=== PATIENT | female | born 1995 | race American Indian/Alaskan Native ===

== ENCOUNTER 2016-12-10 17:23 | Emergency (ER) | payer SELFPAY ==
--- NOTE | 2016-12-10 18:54 | XRay Report ---
FINAL REPORT EXAM: XR ANKLE 2V LT HISTORY: Injury, pain, swelling COMPARISON: None available. FINDINGS: Three views of left ankle obtained. Oblique nondisplaced fracture of the distal fibular metaphysis and diaphysis. 1 millimeter avulsive fracture fragment the inferior margin the medial malleolus. Prominent soft tissue swelling along the lateral malleolus. Ankle mortise is preserved. IMPRESSION: Oblique nondisplaced fracture of the distal fibula. 1 millimeter fracture fragment at the inferior margin of the medial malleolus.
--- NOTE | 2016-12-10 20:03 | Emergency Department Report ---
HPI - General Chief Complaint: Extremity Injury, Lower Time Seen by Provider: 12/10/16 19:56 - HPI HPI: 21-year-old -[place] female comes in for left ankle pain. Patient states that she slipped and injured her left ankle she states she heard a cracking noise the injury happened last night. She does report that she iced it and take ibuprofen and elevated it last night. She has no past medical history she currently is on no medication and she has a Mirena placed. Last menstrual period was 11/27/2016. ED Past Medical Hx - Past Medical History Previous Medical History?: Yes Additional medical history: - Surgical History Past Surgical History?: No - Social History Smoking Status: Current Every Day Smoker Substance Use Type: None - Medications Home Medications: Home Medications Medication Instructions Recorded Confirmed Last Taken Type Famotidine [Pepcid] 20 mg PO BID #60 tablet 03/12/16 Unknown Rx Vit No.130/Iron/FA 1 tab PO DAILY 03/12/16 03/12/16 07/18/16 History [ Tablet] Oxycodone HCl/Acetaminophen 1 each PO Q6HR PRN #12 tablet 12/10/16 Unknown Rx [Percocet 7.5/325 mg] ED Review of Systems ROS: Stated complaint: LEFT ANKLE SWOLLEN Other details as noted in HPI Musculoskeletal: joint swelling, arthralgia Physical Exam - Physical Exam Vital Signs: Vital Signs 12/10/16 17:51 Temperature 99.1 F Pulse Rate 100 H Respiratory 20 Rate Blood Pressure 143/76 O2 Sat by Pulse 100 Oximetry Physical Exam: GENERAL: Alert and oriented x3, no apparent distress, Normal Gait, atraumatic. HEAD: Head is normocephalic and a-traumatic. EYES: Extra ocular muscles are intact. Pupils are equal, round, and reactive to light and accommodation. EXTREMITIES/MUSCULOSKELETAL: No cyanosis, clubbing, rash, lesions or edema. Full ROM bilaterally. UE/LE Pulses 2+ bilaterally. LE and UE 5+ strength bilaterally left leg edema to the lateral and posterior malleolus. Tender to palpate, decreased range of motion secondary to pain. Capillary refill is intact less than 2 seconds. NEUROLOGIC: No focal Deficit, Cranial nerves II through XII are grossly intact. No loss of sensation, No facial droop, PSYCHIATRIC: Mood is congruent with affect, denies suicidal or homicidal ideations. SKIN: Warm and dry, No lesions, No ulceration or induration present ED Course Vital Signs 12/10/16 17:51 Temperature 99.1 F Pulse Rate 100 H Respiratory 20 Rate Blood Pressure 143/76 O2 Sat by Pulse 100 Oximetry ED Medical Decision Making - Medical Decision Making Patient seen and evaluated by this provider fast track. Given patient a Percocet 2 tablets by mouth now. She has fractured her fibula as a oblique nondisplaced fracture of the distal tubular is a 1 mm fracture fragment at the inferior margin of the medial malleolus. The patient a posterior splint and refer her to orthopedics and would give her pain management. Patient verbalized understanding Critical care attestation.: If time is entered above; I have spent that time in minutes in the direct care of this critically ill patient, excluding procedure time. ED Disposition Clinical Impression: Fracture, fibula, proximal, Fracture of malleolus of left ankle Disposition: DISCHARGED TO HOME OR SELFCARE Is pt being admited?: No Does the pt Need Aspirin: No Condition: Stable Instructions: Ankle Fracture (ED) Additional Instructions: Please take pain medication as prescribed. Do not operate heavy machinery while on this medication. Is very important for you to follow up with orthopedic for proper treatment of the ureter ankle. Prescriptions: Oxycodone HCl/Acetaminophen [Percocet 7.5/325 mg] 1 each PO Q6HR PRN #12 tablet PRN Reason: Pain Referrals: LARRY DAVIS MD [Staff Physician] - 3-5 Days [facility] [Provider Group] - 3-5 Days [facility] [Provider Group] - 3-5 Days [facility], [Provider Group] - 3-5 Days [facility] [Provider Group] - 3-5 Days Forms: Work/School Release Form(ED)
[2016-12-10] MEDS ORDERED: PERCOCET 5/325 PO ONE (20:04)
[2016-12-10 20:53] VITALS: BP 139/77
== END 2016-12-10 21:09 | disposition home or self-care (01) ==
LOC: ED 17:23
DX: S82.832A Other fracture of upper and lower end of left fibula, initial encounter for closed fracture (principal); S82.892A Other fracture of left lower leg, initial encounter for closed fracture; F17.200 Nicotine dependence, unspecified, uncomplicated; W01.0XXA Fall on same level from slipping, tripping and stumbling without subsequent striking against object, initial encounter; Y93.9 Activity, unspecified; Y92.89 Other specified places as the place of occurrence of the external cause; Y99.9 Unspecified external cause status
CPT/HCPCS: 81025; 99284

== ENCOUNTER 2017-04-30 17:33 | Emergency (ER) | payer BC ==
--- NOTE | 2017-04-30 18:00 | Emergency Department Report ---
Chief Complaint: Abdominal Pain Stated Complaint: ABD PAIN/ CONTROL Time Seen by Provider: 04/30/17 17:57 - HPI History of Present Illness: PT c/o abd pain x 2 weeks. PT states she thinks it is due to her Mirena. PT states she has had the Mirena in place for 9 months. - ROS Review of Systems: + vaginal discharge- creamy, white - Exam Physical Exam: obese pt steady gait gu exam not done in triage MSE screening note: Focused history and physical exam performed. Due to findings the following was ordered: labs ED Disposition for MSE Condition: Stable
[2017-04-30 19:45] LABS: Bilirubin,Urine NEG (Negative); Blood,Urine NEG (Negative); Ketones,Urine NEG (Negative); Leukocyte Esterase,Urine TR (Negative); Mucus,Urine 2+ /HPF; Nitrite,Urine NEG (Negative)
--- NOTE | 2017-04-30 20:34 | Emergency Department Report ---
ED Female HPI - General Chief complaint: Urogenital-Female Stated complaint: ABD PAIN/ CONTROL Time Seen by Provider: 04/30/17 17:57 Source: patient Mode of arrival: Ambulatory Limitations: No Limitations - History of Present Illness Initial comments: Patient is a 21-year-old female presents to the ED complaining of vaginal discharge with foul odor times one week. Patient describes discharge as white, creamy consistency. She denies any vaginal lesions or pain. She states last menstrual period was last month. She also states that her Mirena strings is causing her discomfort and causing her pain in her vaginal area patient states she can feel it would service dates painful. Patient states she is urinary and since the beginning of the year. Patient states he was placed in September. Patient states like to have it removed because it is causing her pain. patient states she does not have MANAGER RFID at this point. Patient denies any fever, chills, nausea or vomiting vaginal itching, dysuria, vaginal bleeding. MD Complaint: vaginal discharge, dysuria - Related Data Home Medications Medication Instructions Recorded Confirmed Last Taken Vit No.130/Iron/FA 1 tab PO DAILY 03/12/16 03/12/16 07/18/16 [ Tablet] Previous Rx's Medication Instructions Recorded Last Taken Type Famotidine [Pepcid] 20 mg PO BID #60 tablet 03/12/16 Unknown Rx Oxycodone HCl/Acetaminophen 1 each PO Q6HR PRN #12 tablet 12/10/16 Unknown Rx [Percocet 7.5/325 mg] Norgestimate-Ethinyl Estradiol 1 each PO DAILY #28 tablet 04/30/17 Unknown Rx [Sprintec 28 Day Tablet] Phenazopyridine [Pyridium] 200 mg PO BID #10 tab 04/30/17 Unknown Rx Sulfamethoxazole/Trimethoprim 1 each PO BID #14 tablet 04/30/17 Unknown Rx [Bactrim DS TAB] Allergies Allergy/AdvReac Type Severity Reaction Status Date / Time No Known Allergies Allergy Unverified 09/25/15 17:46 ED Review of Systems ROS: Stated complaint: ABD PAIN/ CONTROL Other details as noted in HPI Constitutional: denies: chills, fever Eyes: denies: eye pain, eye discharge, vision change ENT: denies: ear pain, throat pain Respiratory: denies: cough, shortness of breath, wheezing Cardiovascular: denies: chest pain, palpitations Endocrine: no symptoms reported Gastrointestinal: denies: abdominal pain, nausea, diarrhea Genitourinary: denies: urgency, dysuria, discharge Musculoskeletal: denies: back pain, joint swelling, arthralgia Skin: denies: rash, lesions Neurological: denies: headache, weakness, paresthesias Psychiatric: denies: anxiety, depression Hematological/Lymphatic: denies: easy bleeding, easy bruising ED Past Medical Hx - Past Medical History Previous Medical History?: No Additional medical history: - Surgical History Past Surgical History?: No - Social History Smoking Status: Never Smoker Substance Use Type: None - Medications Home Medications: Home Medications Medication Instructions Recorded Confirmed Last Taken Type Famotidine [Pepcid] 20 mg PO BID #60 tablet 03/12/16 Unknown Rx Vit No.130/Iron/FA 1 tab PO DAILY 03/12/16 03/12/16 07/18/16 History [ Tablet] Oxycodone HCl/Acetaminophen 1 each PO Q6HR PRN #12 tablet 12/10/16 Unknown Rx [Percocet 7.5/325 mg] Norgestimate-Ethinyl Estradiol 1 each PO DAILY #28 tablet 04/30/17 Unknown Rx [Sprintec 28 Day Tablet] Phenazopyridine [Pyridium] 200 mg PO BID #10 tab 04/30/17 Unknown Rx Sulfamethoxazole/Trimethoprim 1 each PO BID #14 tablet 04/30/17 Unknown Rx [Bactrim DS TAB] ED Physical Exam - General Limitations: No Limitations General appearance: alert, in no apparent distress - Head Head exam: Present: atraumatic, normocephalic - Eye Eye exam: Present: normal appearance - ENT ENT exam: Present: mucous membranes moist - Neck Neck exam: Present: normal inspection - Respiratory Respiratory exam: Present: normal lung sounds bilaterally. Absent: respiratory distress - Cardiovascular Cardiovascular Exam: Present: regular rate, normal rhythm. Absent: systolic murmur, diastolic murmur, rubs, gallop - GI/Abdominal GI/Abdominal exam: Present: soft, normal bowel sounds - External exam: Present: normal external exam. Absent: erythema, swelling, lesions, lacerations, bleeding Speculum exam: Present: normal speculum exam, vaginal discharge, other (Mirena strings visualized and mirena removed without any complications per pt request) . Absent: vaginal bleeding, foreign body, laceration Bi-manual exam: Present: normal bi-manual exam. Absent: cervical motion tendernes - Extremities Exam Extremities exam: Present: normal inspection - Back Exam Back exam: Present: normal inspection - Neurological Exam Neurological exam: Present: alert, oriented X3 - Psychiatric Psychiatric exam: Present: normal affect, normal mood - Skin Skin exam: Present: warm, dry, intact, normal color. Absent: rash ED Course Vital Signs 04/30/17 04/30/17 17:59 22:58 Temperature 98.6 F Pulse Rate 90 80 Respiratory 16 18 Rate Blood Pressure 159/102 Blood Pressure 159/83 [Left] O2 Sat by Pulse 100 100 Oximetry ED Medical Decision Making - Medical Decision Making 21-year-old female presents with UTI/bacterial vaginosis ED course: Urinalysis, wet prep, Chlamydia and gonorrhea sent. Urinalysis positive for leukorrhea Discussed findings with patient. Discussed the patient needs to follow up with ob nurse for further STD testing as well as a normal screening Discussed the patient results for chlamydia and gonorrhea will not come back in 3 days for results. Vital signs are normal patient is in no acute distress Discussed STDs not excluded and need to follow-up for the results. Discuss daily conscious her to use of Sprintec for coverage since urine was removed today. Patient is alert and oriented 3 show no signs of instructions given and states will follow-up. Critical care attestation.: If time is entered above; I have spent that time in minutes in the direct care of this critically ill patient, excluding procedure time. ED Disposition Clinical Impression: Bacterial vaginosis UTI (urinary tract infection) Qualifiers: Urinary tract infection type: acute cystitis Hematuria presence: without hematuria Qualified Code(s): N30.00 - Acute cystitis without hematuria Disposition: DC- TO HOME OR SELFCARE Is pt being admited?: No Does the pt Need Aspirin: No Condition: Stable Instructions: Bacterial Vaginosis (ED), Urinary Tract Infection in Women (ED) Prescriptions: Norgestimate-Ethinyl Estradiol [Sprintec 28 Day Tablet] 1 each PO DAILY #28 tablet Phenazopyridine [Pyridium] 200 mg PO BID #10 tab Sulfamethoxazole/Trimethoprim [Bactrim DS TAB] 1 each PO BID #14 tablet Referrals: PRIMARY CARE, [Primary Care Provider] - 3-5 Days JENNIFER LARA MD [Referring] - 3-5 Days [facility] [Outside] - 3-5 Days Forms: Accompanied Note, STI Treatment and Prevention, Work/School Release Form (ED) Time of Disposition: 22:33
[2017-04-30] MEDS ORDERED: FLAGYL PO ONE (22:32)
[2017-04-30 22:59] VITALS: BP 159/83
== END 2017-04-30 22:59 | disposition home or self-care (01) ==
LOC: ED 17:33
DX: N30.00 Acute cystitis without hematuria (principal); N76.0 Acute vaginitis
CPT/HCPCS: 81001; 81025; 87210; 87591

== ENCOUNTER 2017-05-18 22:18 | Emergency (ER) | payer BC ==
[2017-05-18] MEDS ORDERED: TYLENOL PO ONE (23:36)
[2017-05-18] MEDS ORDERED: TYLENOL ONE (23:41)
[2017-05-19] MEDS ORDERED: MOTRIN PO ONE ×2 (02:16→02:24)
--- NOTE | 2017-05-19 03:06 | XRay Report ---
FINAL REPORT PROCEDURE: XR ANKLE 2V LT TECHNIQUE: LEFT ankle radiographs, AP and lateral views. HISTORY: LEFT ANKLE PAIN COMPARISON: 12/10/2016 FINDINGS: Fracture (s) and/or Dislocation(s): No acute fracture is identified. Minimal osseous remodeling of the distal fibula from previous fracture. Alignment: Normal. Joint space(s): Normal. Soft tissues: Normal. Bone mineralization: Normal. Foreign bodies: Normal. Calcaneal spurring: Normal. IMPRESSION: No evidence of an acute fracture or dislocation..
--- NOTE | 2017-05-19 03:10 | XRay Report ---
FINAL REPORT PROCEDURE: XR SPINE CERVICAL 2-3V TECHNIQUE: Cervical spine radiographs, AP, lateral, and open-mouth odontoid views. CPT 58926 HISTORY: NECK/BACK PAIN COMPARISON: No prior studies are available for comparison. FINDINGS: Prevertebral soft tissues: Normal . Alignment: There is a reversal of liver lordosis, muscle or ligamentous strain is suspected. Vertebral body heights/Disk spaces: Normal . Fracture(s): None . Facets: Normal . Bone mineralization: Normal . IMPRESSION: No acute fracture or dislocation of the cervical spine. Straightening of the cervical lordosis most consistent with muscle or ligamentous strain.
--- NOTE | 2017-05-19 03:33 | Emergency Department Report ---
ED Fall HPI - General Chief Complaint: Fall Stated Complaint: FELL DOWN ON THE FLOOR Time Seen by Provider: 05/19/17 02:41 Source: patient Mode of arrival: Ambulatory - History of Present Illness Initial Comments: 21-year-old female past medical history obesity presents with complaint of left ankle pain and neck pain status post mechanical fall while shopping in store this evening. Patient states that she was shopping in a store and states that she slipped on an area of the floor that she claims was slippery in store. Patient states she fell backwards denies any loss of consciousness denies sustaining any lacerations. Patient states she had to be helped up by bystanders. Brought into the hospital for evaluation by boyfriend. Patient is awake alert and oriented 3 not in acute distress denies chest pain shortness of breath nausea vomiting blurry vision and headache. Fully lucid, cooperative , calm. States her left ankle is aching. It's that the back of her neck feels sore. Denies any other injuries. MD Complaint: fall -: Last night Fall From: standing Fall Witnessed: yes, by bystander Place Fall Occurred: other (states it occurred in a store) Loss of Consciousness: none Prolonged Down Time?: no, minute(s) (1) Symptoms Prior to Fall: none Location - Extremities: Left: Ankle Severity: mild Severity scale (0 -10): 4 Quality: aching Context: tripped/slipped Associated Symptoms: denies - Related Data Home Medications Medication Instructions Recorded Confirmed Last Taken Vit No.130/Iron/FA 1 tab PO DAILY 03/12/16 03/12/16 07/18/16 [ Tablet] Previous Rx's Medication Instructions Recorded Last Taken Type Famotidine [Pepcid] 20 mg PO BID #60 tablet 03/12/16 Unknown Rx Oxycodone HCl/Acetaminophen 1 each PO Q6HR PRN #12 tablet 12/10/16 Unknown Rx [Percocet 7.5/325 mg] Norgestimate-Ethinyl Estradiol 1 each PO DAILY #28 tablet 04/30/17 Unknown Rx [Sprintec 28 Day Tablet] Phenazopyridine [Pyridium] 200 mg PO BID #10 tab 04/30/17 Unknown Rx Sulfamethoxazole/Trimethoprim 1 each PO BID #14 tablet 04/30/17 Unknown Rx [Bactrim DS TAB] Naproxen [Naprosyn TAB] 500 mg PO BID PRN #25 tablet 05/19/17 Unknown Rx Allergies Allergy/AdvReac Type Severity Reaction Status Date / Time No Known Allergies Allergy Unverified 09/25/15 17:46 ED Review of Systems ROS: Stated complaint: FELL DOWN ON THE FLOOR Other details as noted in HPI Constitutional: denies: chills, fever Eyes: denies: eye pain, eye discharge, vision change ENT: denies: ear pain, throat pain Respiratory: denies: cough, shortness of breath, wheezing Cardiovascular: denies: chest pain, palpitations Endocrine: no symptoms reported Gastrointestinal: denies: abdominal pain, nausea, diarrhea Genitourinary: denies: urgency, dysuria, discharge Musculoskeletal: denies: back pain, joint swelling, arthralgia Skin: denies: rash, lesions Neurological: denies: headache, weakness, paresthesias Psychiatric: denies: anxiety, depression Hematological/Lymphatic: denies: easy bleeding, easy bruising ED Past Medical Hx - Past Medical History Previous Medical History?: No Additional medical history: - Surgical History Past Surgical History?: No - Social History Smoking Status: Never Smoker Substance Use Type: None - Medications Home Medications: Home Medications Medication Instructions Recorded Confirmed Last Taken Type Famotidine [Pepcid] 20 mg PO BID #60 tablet 03/12/16 Unknown Rx Vit No.130/Iron/FA 1 tab PO DAILY 03/12/16 03/12/16 07/18/16 History [ Tablet] Oxycodone HCl/Acetaminophen 1 each PO Q6HR PRN #12 tablet 12/10/16 Unknown Rx [Percocet 7.5/325 mg] Norgestimate-Ethinyl Estradiol 1 each PO DAILY #28 tablet 04/30/17 Unknown Rx [Sprintec 28 Day Tablet] Phenazopyridine [Pyridium] 200 mg PO BID #10 tab 04/30/17 Unknown Rx Sulfamethoxazole/Trimethoprim 1 each PO BID #14 tablet 04/30/17 Unknown Rx [Bactrim DS TAB] Naproxen [Naprosyn TAB] 500 mg PO BID PRN #25 tablet 05/19/17 Unknown Rx ED Physical Exam - General Limitations: No Limitations General appearance: alert, in no apparent distress - Head Head exam: Present: atraumatic, normocephalic - Eye Eye exam: Present: normal appearance, PERRL, EOMI - ENT ENT exam: Present: mucous membranes moist - Neck Neck exam: Present: normal inspection, full ROM (neck flexion and extension intact) - Respiratory Respiratory exam: Present: normal lung sounds bilaterally. Absent: respiratory distress - Cardiovascular Cardiovascular Exam: Present: regular rate, normal rhythm. Absent: systolic murmur, diastolic murmur, rubs, gallop - GI/Abdominal GI/Abdominal exam: Present: soft, normal bowel sounds - Extremities Exam Extremities exam: Present: normal inspection - Expanded Lower Extremity Exam Left Lower Leg exam: Present: normal inspection, full ROM Ankle exam: Present: normal inspection, full ROM (ankle dorsiflexion plantar flexion inversion eversion fully intact) Foot/Toe exam: Present: normal inspection, full ROM Neuro vascular tendon exam: Present: no vascular compromise (distal dorsalis pedis and posterior tibial pulses intact) Gait: Positive: antalgic 1 - Some pain on palpation here - Back Exam Back exam: Present: normal inspection - Neurological Exam Neurological exam: Present: alert, oriented X3, CN II-XII intact, normal gait - Psychiatric Psychiatric exam: Present: normal affect, normal mood - Skin Skin exam: Present: warm, dry, intact, normal color. Absent: rash ED Course Vital Signs 05/18/17 23:08 Temperature 98.5 F Pulse Rate 94 H Respiratory 20 Rate Blood Pressure 157/81 O2 Sat by Pulse 99 Oximetry ED Medical Decision Making - Medical Decision Making A/P: Fall injury, neck pain, ankle pain 1-patient is able to walk without assistance without any significant difficulty and cranial nerves I through XII grossly intact, patient is fully awake alert oriented and lucid. Does not meet [place] or [place] head CT rules for imaging C-spine/head. X-ray ordered from triage which was negative. 2-ankle x-ray unremarkable area patient is fully ambulatory without assistance 3-naproxen when necessary, RICE therapy, Prem wrap to ankle 4-patient ambulatory upon discharge. follow up with primary care Critical care attestation.: If time is entered above; I have spent that time in minutes in the direct care of this critically ill patient, excluding procedure time. ED Disposition Clinical Impression: Neck pain Ankle pain, left Qualifiers: Chronicity: acute Qualified Code(s): M25.572 - Pain in left ankle and joints of left foot Fall Qualifiers: Encounter type: initial encounter Qualified Code(s): W19.XXXA - Unspecified fall, initial encounter Disposition: TO HOME OR SELFCARE Is pt being admited?: No Does the pt Need Aspirin: No Condition: Stable Instructions: RICE Therapy (ED), Musculoskeletal Pain (ED), Acute Low Back Pain (ED) Prescriptions: Naproxen [Naprosyn TAB] 500 mg PO BID PRN #25 tablet PRN Reason: Pain Referrals: [facility] [Provider Group] - 3-5 Days [facility] [Provider Group] - 3-5 Days [facility] [Provider Group] - 3-5 Days Forms: Accompanied Note, Work/School Release Form(ED) Time of Disposition: 03:34
[2017-05-19 03:43] VITALS: BP 153/94
== END 2017-05-19 03:43 | disposition home or self-care (01) ==
LOC: ED 22:18
DX: M25.572 Pain in left ankle and joints of left foot (principal); M54.2 Cervicalgia; W19.XXXA Unspecified fall, initial encounter
CPT/HCPCS: 36415; 72040; 84703; 99284

== ENCOUNTER 2017-06-23 21:05 | Emergency (ER) | payer BC ==
[2017-06-24 00:27] VITALS: BP 148/87
[2017-06-24 01:41] LABS: Bacteria,Urine 2+ /HPF (Negative); Bilirubin,Urine NEG (Negative); Blood,Urine NEG (Negative); Ketones,Urine NEG (Negative); Leukocyte Esterase,Urine LG (Negative); Mucus,Urine FEW /HPF; Nitrite,Urine NEG (Negative); Protein,Urine <15 mg/dL mg/dL (Negative); Urobilinogen,Urine < 2.0 mg/dL (<2.0)
== END 2017-06-24 04:25 | disposition left against medical advice (07) ==
LOC: ED 21:05
DX: M54.5 Low back pain (principal); Z53.21 Procedure and treatment not carried out due to patient leaving prior to being seen by health care provider
CPT/HCPCS: 36415; 81001; 81025; 84702

== ENCOUNTER 2017-07-30 13:25 | Emergency (ER) | payer BC, MEDICAID ==
[2017-07-30 14:21] LABS: Hematocrit 37.3 % (30.3-42.9); Hemoglobin 12.3 gm/dl (10.1-14.3); Mean Corpuscular HGB Conc 33 % (30-34); Mean Corpuscular Hemoglobin 29 pg (28-32); Mean Corpuscular Volume 89 fl (79-97); Platelet Count 330 K/mm3 (140-440); Red Blood Count 4.21 M/mm3 (3.65-5.03); Red Cell Distribution Width 14.7 % (13.2-15.2); White Blood Count 8.4 K/mm3 (4.5-11.0)
[2017-07-30 14:37] LABS: Anion Gap 18 mmol/L; BUN/Creatinine Ratio 15; Blood Urea Nitrogen 6 mg/dL (7-17); Calcium 9.2 mg/dL (8.4-10.2); Carbon Dioxide 25 mmol/L (22-30); Chloride 100.8 mmol/L (98-107); Glucose 96 mg/dL (65-100); Potassium 3.6 mmol/L (3.6-5.0); Sodium 140 mmol/L (137-145)
--- NOTE | 2017-07-30 14:37 | Emergency Department Report ---
Chief Complaint: Urogenital-Female Stated Complaint: VAGINAL PRESSURE Time Seen by Provider: 07/30/17 14:36 - HPI History of Present Illness: This is a 22-year-old female who reports that she is about 16 weeks with no care. She says she is concerned because she thinks that she has lost the baby. She says she thought she lost the baby because she did not have any movement and she did before. 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 She says she's had been vaginal pain on the inside of her vagina and denies trauma. Denies any vaginal bleeding or discharge. Pain is 7 out of 10. She said she took some ice acyclovir recently for herpes break out and she says she thinks she is having a little breakout now. She denies any abdominal pain - ROS Review of Systems: All systems are negative unless stated in HPI above - Exam Vital Signs: Vital Signs 07/30/17 13:46 Temperature 98.3 F Pulse Rate 86 Respiratory 18 Rate Blood Pressure 128/67 O2 Sat by Pulse 99 Oximetry Physical Exam: Gen.: This is a 22-year-old female well-nourished well-developed in no acute distress Abdomen: No acute abdomen, no rigidity . Normal bowel sounds in all quadrants. MSE screening note: Focused history and physical exam performed. Due to findings the following was ordered: ED Medical Decision Making - Lab Data Result diagrams: 07/30/17 13:59 07/30/17 13:59 - Medical Decision Making MDM: Patient screened by provider in triage area. Appropriate protocol initiated and patient to be seen in main ED by ED Disposition for MSE Condition: Stable
[2017-07-30 16:14] LABS: Bacteria,Urine 2+ /HPF (Negative); Bilirubin,Urine NEG (Negative); Blood,Urine NEG (Negative); Ketones,Urine TR mg/dL (Negative); Leukocyte Esterase,Urine MOD (Negative); Mucus,Urine 3+ /HPF; Nitrite,Urine NEG (Negative)
[2017-07-30 19:28] VITALS: BP 112/65
--- NOTE | 2017-07-30 20:05 | Ultrasound Report ---
FINAL REPORT EXAM: US OB < = 14 WK FETUS ADD GEST HISTORY: 16 weeks with no movement felt by the mother . LMP 06/01/2017 with estimated age 8 weeks 3 days and EDC 03/08/2018. A serum beta HCG quantitation [id number] TECHNIQUE: Ultrasound of the pelvis using transabdominal and transvaginal imaging PRIORS: None. FINDINGS: Uterus: Uterus is enlarged in size and normal and homogeneous in echogenicity without focal fibroid formation. The uterus measures 12.9 x 6.5 x 7.3 cm in size. There is a single early viable intrauterine gestation noted. Intrauterine gestation: There is a single intrauterine gestation identified with both a pole and yolk sac. heart rate is monitored at 163 BPM using M-mode doppler. [place]-rump length measurement of 4.26 cm corresponds to estimated age 11 weeks 1 days with EDC 02/17/2018. Placenta is located anteriorly. Ovaries: Neither ovary is visualized. Other: There is no evidence for solid adnexal mass is seen. There is no free fluid in the cul-de-sac. IMPRESSION: Single intrauterine viable with an approximate age of 11 weeks 1 days.
--- NOTE | 2017-07-30 20:05 | Ultrasound Report ---
FINAL REPORT EXAM: US OB TRANSVAGINAL HISTORY: 16 weeks with no movement felt by the mother . LMP 06/01/2017 with estimated age 8 weeks 3 days and EDC 03/08/2018. A serum beta HCG quantitation [id number] TECHNIQUE: Ultrasound of the pelvis using transabdominal and transvaginal imaging PRIORS: None. FINDINGS: Uterus: Uterus is enlarged in size and normal and homogeneous in echogenicity without focal fibroid formation. The uterus measures 12.9 x 6.5 x 7.3 cm in size. There is a single early viable intrauterine gestation noted. Intrauterine gestation: There is a single intrauterine gestation identified with both a pole and yolk sac. heart rate is monitored at 163 BPM using M-mode doppler. [place]-rump length measurement of 4.26 cm corresponds to estimated age 11 weeks 1 days with EDC 02/17/2018. Placenta is located anteriorly. Ovaries: Neither ovary is visualized. Other: There is no evidence for solid adnexal mass is seen. There is no free fluid in the cul-de-sac. IMPRESSION: Single intrauterine viable with an approximate age of 11 weeks 1 days.
--- NOTE | 2017-07-30 21:34 | Emergency Department Report ---
HPI - General Chief Complaint: Urogenital-Female Time Seen by Provider: 07/30/17 14:36 - HPI HPI: This is a 22-year-old female presents to the emergency department with complaint of concern for possible miscarriage as she took some indomethacin earlier, that she takes for herpes simplex, and did not feel like the baby was moving the way it normally does. She denies any vaginal bleeding, discharge, dysuria, fever, nausea, vomiting or abdominal pain. She does have a little bit of pressure towards the vagina. With this she is . She is going to see [facility] MORNING SHOW PRODUCER but does not have an appointment until August. She believes that she is about 16 weeks . She is on vitamins. ED Past Medical Hx - Past Medical History Additional medical history: ,herpes - Surgical History Past Surgical History?: No - Social History Smoking Status: Never Smoker Substance Use Type: None - Medications Home Medications: Home Medications Medication Instructions Recorded Confirmed Last Taken Type Famotidine [Pepcid] 20 mg PO BID #60 tablet 03/12/16 Unknown Rx Vit No.130/Iron/Folic 1 tab PO DAILY 03/12/16 03/12/16 07/18/16 History [ Tablet] Oxycodone HCl/Acetaminophen 1 each PO Q6HR PRN #12 tablet 12/10/16 Unknown Rx [Percocet 7.5/325 mg] Norgestimate-Ethinyl Estradiol 1 each PO DAILY #28 tablet 04/30/17 Unknown Rx [Sprintec 28 Day Tablet] Phenazopyridine [Pyridium] 200 mg PO BID #10 tab 04/30/17 Unknown Rx Sulfamethoxazole/Trimethoprim 1 each PO BID #14 tablet 04/30/17 Unknown Rx [Bactrim DS TAB] Naproxen [Naprosyn TAB] 500 mg PO BID PRN #25 tablet 05/19/17 Unknown Rx ED Review of Systems ROS: Stated complaint: VAGINAL PRESSURE Other details as noted in HPI Comment: All other systems reviewed and negative Constitutional: denies: chills, fever Eyes: denies: eye pain, eye discharge, vision change ENT: denies: ear pain, throat pain Respiratory: denies: cough, shortness of breath, wheezing Cardiovascular: denies: chest pain, palpitations Gastrointestinal: denies: abdominal pain, nausea, diarrhea Genitourinary: denies: urgency, dysuria, discharge Musculoskeletal: denies: back pain, joint swelling, arthralgia Skin: denies: change in color, pruritus Neurological: denies: headache, weakness, paresthesias Physical Exam - Physical Exam Vital Signs: Vital Signs 07/30/17 07/30/17 13:46 19:28 Temperature 98.3 F 97.6 F Pulse Rate 86 87 Respiratory 18 18 Rate Blood Pressure 128/67 112/65 O2 Sat by Pulse 99 100 Oximetry Physical Exam: GENERAL: The patient is well-developed well-nourished. HENT: Normocephalic. Atraumatic. Patient has moist mucous membranes. EYES: Extraocular motions are intact. Pupils equal reactive to light bilaterally. NECK: Supple. Trachea is midline. CHEST/LUNGS: Clear to auscultation. There is no respiratory distress noted. HEART/CARDIOVASCULAR: Regular. There is no tachycardia. There is no gallop rub or murmur. ABDOMEN: Abdomen is soft, nontender. Patient has normal bowel sounds. Obese habitus. SKIN: Skin is warm and dry. NEURO: The patient is awake, alert, and oriented. The patient is cooperative. The patient has no focal neurologic deficits. The patient has normal speech. MUSCULOSKELETAL: There is no tenderness or deformity. There is no limitation range of motion. There is no evidence of acute injury. ED Course Vital Signs 07/30/17 07/30/17 13:46 19:28 Temperature 98.3 F 97.6 F Pulse Rate 86 87 Respiratory 18 18 Rate Blood Pressure 128/67 112/65 O2 Sat by Pulse 99 100 Oximetry ED Medical Decision Making - Lab Data Result diagrams: 07/30/17 13:59 07/30/17 13:59 - Radiology Data Radiology results: report reviewed EXAM: US OB TRANSVAGINAL HISTORY: 16 weeks with no movement felt by the mother . LMP 06/01/2017 with estimated age 8 weeks 3 days and EDC 03/08/2018. A serum beta HCG quantitation [id number] TECHNIQUE: Ultrasound of the pelvis using transabdominal and transvaginal imaging PRIORS: None. FINDINGS: Uterus: Uterus is enlarged in size and normal and homogeneous in echogenicity without focal fibroid formation. The uterus measures 12.9 x 6.5 x 7.3 cm in size. There is a single early viable intrauterine gestation noted. Intrauterine gestation: There is a single intrauterine gestation identified with both a pole and yolk sac. heart rate is monitored at 163 BPM using M-mode doppler. [place]-rump length measurement of 4.26 cm corresponds to estimated age 11 weeks 1 days with EDC 02/17/2018. Placenta is located anteriorly. Ovaries: Neither ovary is visualized. Other: There is no evidence for solid adnexal mass is seen. There is no free fluid in the cul-de-sac. IMPRESSION: Single intrauterine viable with an approximate age of 11 weeks 1 days. Transcribed By: [facility] Dictated By: GOYO CARDENAS MD Electronically Authenticated By: GOYO CARDENAS MD Signed Date/Time: 07/30/17 5050 - Medical Decision Making Patient presented after she was concerned about the and she did not feel movement that she says that she feels regularly and was concerned that she had some reaction to taking indomethacin. Labs have been unremarkable. Ultrasound shows a live intrauterine at 11 weeks. There is no vaginal bleeding. Vital signs stable. She will follow up with her MORNING SHOW PRODUCER and return to the ER with any worsening of her symptoms or any acute distress. She will hold off on taking anything but Tylenol for discomfort until follow-up with OB. - Differential Diagnosis , threatened miscarriage, spontaneous miscarriage, fibroids Critical Care Time: No Critical care attestation.: If time is entered above; I have spent that time in minutes in the direct care of this critically ill patient, excluding procedure time. ED Disposition Clinical Impression: Qualifiers: Weeks of gestation: 11 weeks Qualified Code(s): Z3A.11 - 11 weeks gestation of Disposition: DC-01 TO HOME OR SELFCARE Is pt being admited?: No Condition: Stable Instructions: (ED) Additional Instructions: Please follow-up with your MORNING SHOW PRODUCER as soon as possible. Return to the emergency Department with any worsening of her symptoms, vaginal bleeding, sharp abdominal pains, or any acute distress. Continue with your vitamins. Referrals: PRIMARY MD MARTIN [Primary Care Provider] - 3-5 Days Forms: Accompanied Note Time of Disposition: 21:34
== END 2017-07-30 21:43 | disposition home or self-care (01) ==
LOC: ED 13:25
DX: O26.891 Other specified pregnancy related conditions, first trimester (principal); N89.8 Other specified noninflammatory disorders of vagina; Z3A.11 11 weeks gestation of pregnancy
CPT/HCPCS: 36415; 76801; 76802; 76817; 80048; 81001; 84702; 85027; 86900; 86901

== ENCOUNTER 2018-02-14 05:11 | Outpatient (CLI) | payer BC, MEDICAID ==
[2018-02-14 05:41] VITALS: BP 127/67
== END 2018-02-14 06:05 | disposition home or self-care (01) ==
LOC: TRG 05:11
PROVIDERS: ATTEND Obstetrics & Gynecology
DX: O47.1 False labor at or after 37 completed weeks of gestation (principal); Z3A.39 39 weeks gestation of pregnancy
CPT/HCPCS: 59025

== ENCOUNTER 2018-02-14 10:48 | Inpatient (IN) | payer BC, MEDICAID ==
[2018-02-14] MEDS ORDERED: STADOL IV PRN (13:09)
[2018-02-14] MEDS ORDERED: XYLOCAINE 2% INFILTRATI ONE (13:18)
[2018-02-14] MEDS ORDERED: ePHEDrine SULFATE IV PRN ×2 (13:18→14:55)
[2018-02-14] MEDS ORDERED: SUBLIMAZE IV PRN (13:18)
[2018-02-14] MEDS ORDERED: BRETHINE IVP PRN (13:18)
[2018-02-14] MEDS ORDERED: BRETHINE SUB-Q PRN (13:18)
[2018-02-14 13:29] LABS: Basophils % (Auto) 0.1 % (0.0-1.8); Eosinophils % (Auto) 0.4 % (0.0-4.3); Hematocrit 33.6 % (30.3-42.9); Hemoglobin 11.3 gm/dl (10.1-14.3); Lymphocytes # (Auto) 1.7 K/mm3 (1.2-5.4); Lymphocytes % (Auto) 14.3 % (13.4-35.0); Mean Corpuscular HGB Conc 34 % (30-34); Mean Corpuscular Hemoglobin 30 pg (28-32); Mean Corpuscular Volume 89 fl (79-97); Monocytes # (Auto) 0.7 K/mm3 (0.0-0.8); Monocytes % (Auto) 6.3 % (0.0-7.3); Platelet Count 283 K/mm3 (140-440); Red Blood Count 3.76 M/mm3 (3.65-5.03); Red Cell Distribution Width 14.6 % (13.2-15.2)
[2018-02-14] MEDS ORDERED: PITOCin/NS 30 UNIT/500ML 30 UNITS/500 ML BAG IV SCH ×2 (14:00→15:00)
[2018-02-14] MEDS ORDERED: PITOCin/NS 20 UNIT/1000ML DRIP 20 UNITS/1,000 ML BAG IV SCH (14:00)
[2018-02-14] MEDS ORDERED: LACTATED RINGERS 1,000 ML IV SCH ×3 (14:00→15:00)
--- NOTE | 2018-02-14 14:15 | History and Physical Report ---
History of Present Illness Date of examination: 02/14/18 Date of admission: 02/14/18 10:49 Chief complaint: Sent from [facility] today in early labor with a recommendation for delivery due to a decreased BASSEM (7.61), and Borderline IUGR (13%). History of present illness: Late entry to care; Second trimester complicated by a abnormal Quad Screen; followed by a low risk Panorama, 1 UTI (treated with Macrobid), Anemia, and Vitamin D Insufficiency. Co-managed with [facility] due to maternal obesity. Hx of HSV II, taking Valtex suppression. 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 Family/Genetic History: diabetes, hypertension Social history: no significant social history, single - Obstetrical History Expected Date of Delivery: 02/19/18 Actual Gestation: 39 Week(s) 2 Day(s) : 2 Para: 1 Hx # Term Pregnancies: 1 Number of Living Children: 1 #1 Infant Gender: Female year: 2[age][birth year] Birthweight: 2.863 kg Method of Delivery: Vaginal Gestational age at delivery: 41 Complications: none Medications and Allergies Allergies Allergy/AdvReac Type Severity Reaction Status Date / Time No Known Allergies Allergy Unverified 09/25/15 17:46 Home Medications Medication Instructions Recorded Confirmed Last Taken Type Valacyclovir HCl [Valtrex] 500 mg PO DAILY 02/14/18 02/14/18 02/13/18 11:00 History Active Meds: Active Medications Butorphanol Tartrate (Stadol) 2 mg IV Q2H PRN PRN Reason: Labor Pain Last Admin: 02/14/18 13:21 Dose: 2 mg Ephedrine Sulfate (Ephedrine Sulfate) 10 mg IV Q2M PRN PRN Reason: Hypotension Fentanyl (Sublimaze) 100 mcg IV Q2H PRN PRN Reason: Labor Pain Lactated Ringer's (Lactated Ringers) 1,000 mls @ 125 mls/hr IV DIRECT JORGE Oxytocin/Sodium Chloride (Pitocin/Ns 20 Unit/1000ml Drip) 20 units in 1,000 mls @ 125 mls/hr IV DIRECT JORGE Oxytocin/Sodium Chloride (Pitocin/Ns 30 Unit/500ml) 30 units in 500 mls @ 1 mls /hr IV TITR JORGE; Protocol Lactated Ringer's (Lactated Ringers) 1,000 mls @ 125 mls/hr IV DIRECT JORGE Oxytocin/Sodium Chloride (Pitocin/Ns 30 Unit/500ml) 30 units in 500 mls @ 1 mls /hr IV TITR JORGE; Protocol Mineral Oil (Mineral Oil) 30 ml PO QHS PRN PRN Reason: Constipation Terbutaline Sulfate (Brethine) 0.25 mg SUB-Q ONCE PRN PRN Reason: Hyperstimulation/Hypertonicity Terbutaline Sulfate (Brethine) 0.25 mg IVP ONCE PRN PRN Reason: Hyperstimulation/Hypertonicity Review of Systems All systems: negative - Vital Signs Vital signs: Vital Signs Temp Pulse Resp BP 97.6 F 78 18 117/66 02/14/18 12:33 02/14/18 12:33 02/14/18 12:33 02/14/18 12:33 Temp Pulse Resp BP Pulse Ox 97.6 F 78 18 117/66 02/14/18 12:33 02/14/18 12:33 02/14/18 12:33 02/14/18 12:33 - Physical Exam Breasts: Positive: normal Cardiovascular: Regular rate Lungs: Positive: Clear to auscultation, Normal air movement Abdomen: Positive: normal appearance, soft, normal bowel sounds Genitourinary (Female): Positive: normal external genitalia, normal perenium Vagina: Positive: normal moisture Uterus: Positive: enlarged Anus/Rectum: Positive: normal perianal skin - Obstetrical FHR: category 1 Uterine Contraction Monitor Mode: Internal Cervical Dilatation: 7 (AROM of a moderate amount of clear fluid @ 1355) Cervical Effacement Percentage: 80 station: -3 Uterine Contraction Pattern: Irregular Uterine Tone Measurement Phase: Resting Uterine Contraction Intensity: Moderate Results Result Diagrams: 02/14/18 13:23 Abnormal lab results 02/14/18 Range/Units 13:23 WBC 11.9 H (4.5-11.0) K/mm3 Seg Neutrophils % 78.9 H (40.0-70.0) % Seg Neutrophils # 9.4 H (1.8-7.7) K/mm3 All other labs normal. Assessment and Plan A: IUP @ 39 2/7 Weeks Category I Tracing Decreased BASSEM Borderline IUGR Active Labor Maternal Obesity GBS Negative P: Admit to L&D per Routine Orders AROM Pitocin Augmentation Internal x 1 Epidural Anesthesia
[2018-02-14] MEDS ORDERED: NARCAN 2 MG/2 ML IV PRN (14:55)
--- NOTE | 2018-02-14 14:55 | Anesthesia Consultation ---
Anesthesia Consult and Med Hx Date of service: 02/14/18 - Airway Anesthetic Teeth Evaluation: Good ROM Head & Neck: Adequate Mental/Hyoid Distance: Adequate Mallampati Class: Class III Intubation Access Assessment: Possibly Difficult - Pre-Operative Health Status ASA Pre-Surgery Classification: ASA3 Proposed Anesthetic Plan: Epidural, Spinal - Pulmonary Hx Asthma: No - Cardiovascular System Hx Hypertension: No - Central Nervous System Hx Seizures: No Hx Psychiatric Problems: No - Endocrine Hx Renal Disease: No Hx Hypothyroidism: No Hx Hyperthyroidism: No - Hematic Hx Anemia: No Hx Sickle Cell Disease: No - Other Systems Hx Alcohol Use: No Hx Obesity: Yes (BMI 47.6)
[2018-02-14] MEDS ORDERED: fentaNYL-BUPIV 2 MCG/ML-0.125% 200 MCG/100 ML BAG EPIDURAL SCH (15:00)
[2018-02-14] MEDS ORDERED: XYLOCAINE MPF 2% ONE (16:00)
[2018-02-14] MEDS ORDERED: MINERAL OIL ONE (16:23)
[2018-02-14] MEDS ORDERED: PHENERGAN PR PRN (16:42)
[2018-02-14] MEDS ORDERED: BENADRYL PO PRN (16:42)
--- NOTE | 2018-02-14 16:48 | Procedure Note ---
OB Delivery Note - Delivery Date of Delivery: 02/14/18 (1628) Surgeon: SHEILA MARTINEZ Estimated blood loss: 200cc - Vaginal Delivery presentation: vertex Delivery position: OA Intrapartum events: none Delivery induction: none Delivery augmentation: rupture of membranes, pitocin Delivery monitor: external FHT, internal uterine Route of delivery: Delivery placenta: spontaneous Delivery cord: 3 umbilical vessels Episiotomy: none Delivery laceration: none Anesthesia: none Delivery comments: of a live 6'13 male over a intact perineum under epidural anesthesia with Apgars of 8 and 9 at 1628 on 02/14/2018. directly to maternal abd/chest, skin to skin contact. Spontaneous delivery of placenta complete and intact with Velasquez side presenting at 1634. Fundus is firm and midline located 4 below the U; Lochia is scant. Delayed cord clamping and cutting; cord cut by the father of the baby. Placenta discarded. - Infant A at 1 minute: 8 at 5 minutes: 9 Gender: Male (6'13)
[2018-02-14] MEDS ORDERED: SODIUM CHLORIDE FLUSH SYRINGE 10 ML IV SCH (17:00)
[2018-02-14] MEDS: MOTRIN PO SCH (20:44)
[2018-02-14] MEDS: NORCO 5/325 PO PRN (21:45)
[2018-02-14] MEDS ORDERED: MINERAL OIL PO PRN (22:00)
[2018-02-15] MEDS: MOTRIN PO SCH ×4 (01:42→17:58)
[2018-02-15] MEDS: NORCO 5/325 PO PRN ×5 (03:34→22:18)
[2018-02-15 04:21] LABS: Hematocrit 31.7 % (30.3-42.9); Hemoglobin 10.4 gm/dl (10.1-14.3)
[2018-02-15] MEDS ORDERED: BOOSTRIX IM ONE (06:00)
--- NOTE | 2018-02-15 09:48 | Progress Note ---
Assessment and Plan A: PPD#1 s/p Stable P: Routine care Discharge home in am Subjective - Subjective Date of service: 02/15/18 Principal diagnosis: Interval history: See H&P and delivery note Patient reports: appetite normal, voiding normally, pain well controlled, flatus , ambulating normally : doing well, other (Breast/Bottle) Objective - Vital Signs Latest vital signs: Vital Signs Temp Pulse Resp BP BP Pulse Ox 02/15/18 05:35 98.7 F 81 20 113/78 98 02/15/18 00:56 97.4 F L 77 20 119/61 98 02/14/18 20:18 118/54 02/14/18 20:14 98.7 F 78 20 02/14/18 19:01 92 H 123/54 02/14/18 18:32 150 H 116/57 02/14/18 17:46 97.6 F 65 103/51 02/14/18 17:15 68 90/47 02/14/18 17:00 66 87/46 02/14/18 12:33 97.6 F 78 18 117/66 Intake and Output 02/14/18 02/15/18 02/15/18 23:59 07:59 15:59 Intake Total 360 480 Output Total 700 Balance -340 480 Intake: Oral 480 Intake, Free Water 360 Output: Urine 700 Void 700 Other: Total, Intake Amount 240 Total, Output Amount 700 # Voids Void 1 1 Estimated Blood Loss 200 - Exam Breasts: Present: normal, Cardiovascular: Present: Regular rate, Normal S1 Lungs: Present: Clear to auscultation, Normal air movement Abdomen: Present: normal appearance, soft. Absent: distention Vulva: both: normal Uterus: Present: firm, fundal height at umbilicus Extremities: Present: normal Deep Tendon Reflex Grade: Normal +2 - Labs Labs: Abnormal lab results 02/14/18 Range/Units 13:23 WBC 11.9 H (4.5-11.0) K/mm3 Seg Neutrophils % 78.9 H (40.0-70.0) % Seg Neutrophils # 9.4 H (1.8-7.7) K/mm3
--- NOTE | 2018-02-15 09:49 | Discharge Summary ---
Providers - Providers Date of Admission: 02/14/18 10:49 Date of discharge: 02/16/18 Attending physician: JUJU MENDOZA MD Primary care physician: JUJU MENDOZA MD Hospitalization Reason for admission: active labor, IUP at term Delivery: Procedure details: See delivery note Episiotomy: none Laceration: none Other procedures: none complications: none Discharge diagnosis: IUP at term delivered [place] baby: male Condition at discharge: Good Disposition: DC-01 TO HOME OR SELFCARE Plan - Provider Discharge Summary Activity: routine, no sex for 6 weeks, no heavy lifting 4 weeks, no strenuous exercise Diet: routine Instructions: routine Additional instructions: [] Smoking cessation referral if applicable(refer to patient education folder for contact #) [] Refer to [facility]'s [facility] Center Booklet Call your doctor immediately for: * Fever > 100.5 * Heavy vaginal bleeding ( >1 pad per hour) * Severe persistent headache * Shortness of breath * Reddened, hot, painful area to leg or breast * Drainage or odor from incision. * Keep incision clean and dry at all times and follow doctor's instructions regarding bathing/showering - Follow up plan Follow up: JUJU MENDOZA MD [Primary Care Provider] - 6 Weeks
[2018-02-16] MEDS: MOTRIN PO SCH ×2 (01:54→07:58)
[2018-02-16] MEDS: NORCO 5/325 PO PRN ×2 (01:55→09:13)
[2018-02-16 11:25] VITALS: BP 120/58
== END 2018-02-16 10:40 | disposition home or self-care (01) | DRG 774 ==
LOC: TRG 10:48 → LD 10:49 → OB 20:35
PROVIDERS: ADMIT Obstetrics & Gynecology; ATTEND Obstetrics & Gynecology
PROC: 10E0XZZ Delivery of Products of Conception, External Approach (ICD-10-PCS; principal; 2018-02-14)
PROC: 10907ZC Drainage of Amniotic Fluid, Therapeutic from Products of Conception, Via Natural or Artificial Opening (ICD-10-PCS; 2018-02-14)
PROC: 3E0R3BZ Introduction of Anesthetic Agent into Spinal Canal, Percutaneous Approach (ICD-10-PCS; 2018-02-14)
PROC: 00HU33Z Insertion of Infusion Device into Spinal Canal, Percutaneous Approach (ICD-10-PCS; 2018-02-14)
PROC: 3E0234Z Introduction of Serum, Toxoid and Vaccine into Muscle, Percutaneous Approach (ICD-10-PCS; 2018-02-15)
DX: O36.5930 Maternal care for other known or suspected poor fetal growth, third trimester, not applicable or unspecified (principal); O98.32 Other infections with a predominantly sexual mode of transmission complicating childbirth; Z68.42 Body mass index [BMI] 45.0-49.9, adult; O99.214 Obesity complicating childbirth; E66.9 Obesity, unspecified; Z3A.39 39 weeks gestation of pregnancy; Z37.0 Single live birth; Z23 Encounter for immunization; A60.00 Herpesviral infection of urogenital system, unspecified
CPT/HCPCS: 36415; 85014; 85018; 85025; 86592; 86850; 86900; 86901; 90471; 90715; 99211; G0463; J0595; J2590; J7120

== ENCOUNTER 2018-05-27 00:54 | Emergency (ER) | payer BC, MEDICAID ==
[2018-05-27 01:20] VITALS: BP 152/89
[2018-05-27 01:45] LABS: Basophils # (Auto) 0.1 K/mm3 (0.0-0.1); Eosinophils # (Auto) 0.1 K/mm3 (0.0-0.4); Eosinophils % (Auto) 1.4 % (0.0-4.3); Hematocrit 38.3 % (30.3-42.9); Hemoglobin 12.9 gm/dl (10.1-14.3); Lymphocytes # (Auto) 2.5 K/mm3 (1.2-5.4); Lymphocytes % (Auto) 22.9 % (13.4-35.0); Mean Corpuscular HGB Conc 34 % (30-34); Mean Corpuscular Hemoglobin 30 pg (28-32); Mean Corpuscular Volume 90 fl (79-97); Monocytes # (Auto) 0.7 K/mm3 (0.0-0.8); Monocytes % (Auto) 6.4 % (0.0-7.3); Platelet Count 373 K/mm3 (140-440); Red Blood Count 4.25 M/mm3 (3.65-5.03)
[2018-05-27 01:54] LABS: Bilirubin,Urine NEG (Negative); Blood,Urine MOD (Negative); Color,Urine Amber (Yellow); Mucus,Urine 3+ /HPF
[2018-05-27 01:57] LABS: Amphetamine Screen,Urine PRESUMPTIVE NEGATIVE; Benzodiazepines Screen,Urine PRESUMPTIVE NEGATIVE; Cannabinoid Screen,Urine PRESUMPTIVE NEGATIVE; Cocaine Screen,Urine PRESUMPTIVE NEGATIVE; Opiate Screen,Urine PRESUMPTIVE NEGATIVE
[2018-05-27 01:58] LABS: BUN/Creatinine Ratio 13; Blood Urea Nitrogen 12 mg/dL (7-17); Calcium 9.4 mg/dL (8.4-10.2); Hemolysis Index 0
[2018-05-27 02:17] LABS: Methadone Screen,Urine PRESUMPTIVE POSITIVE
== END 2018-05-27 04:00 | disposition left against medical advice (07) ==
LOC: EEVIPCON 00:54 → ED 00:54
DX: F99 Mental disorder, not otherwise specified (principal); Z53.21 Procedure and treatment not carried out due to patient leaving prior to being seen by health care provider
CPT/HCPCS: 36415; 80048; 80307; 81001; 84703; 85025; G0480; 80320

== ENCOUNTER 2020-04-13 06:26 | Emergency (ER) | payer SELFPAY ==
[2020-04-13 07:07] VITALS: BP 175/109
[2020-04-13] MEDS ORDERED: dexAMETHasone 20 MG/5 ML VIAL IM ONE (07:57)
--- NOTE | 2020-04-13 07:58 | Emergency Department Report ---
ED ENT HPI - General Chief complaint: Sore Throat Stated complaint: POSS SWOLLEN THROAT Time Seen by Provider: 04/13/20 07:53 Source: patient Mode of arrival: Ambulatory Limitations: No Limitations - History of Present Illness Initial comments: This is a 24-year-old female who presents to the ED complaining of right-sided throat pain and swelling for the past week. Patient states that she is having pain with swallowing due to the swelling. Patient denies any recent contact. Patient denies fever/cough/chills/shortness of breath chest pain or any other symptoms. MD complaint: sore throat Location: throat (rght) Severity: moderate Severity scale (0 -10): 5 Quality: aching Worsens with: swallowing - Related Data Home Medications Medication Instructions Recorded Confirmed Last Taken Valacyclovir HCl [Valtrex] 500 mg PO DAILY 02/14/18 02/14/18 02/13/18 11:00 Previous Rx's Medication Instructions Recorded Last Taken Type Amoxicillin [Trimox CAP] 500 mg PO Q8H #21 capsule 04/13/20 Unknown Rx Nystas/Diphen/Xyl Visc/Mylanta 15 ml MM Q6H PRN #120 ml 04/13/20 Unknown Rx [Magic Mouthwash] Allergies Allergy/AdvReac Type Severity Reaction Status Date / Time No Known Allergies Allergy Unverified 09/25/15 17:46 ED Dental HPI - General Chief complaint: Sore Throat Stated complaint: POSS SWOLLEN THROAT Time Seen by Provider: 04/13/20 07:53 Source: patient Mode of arrival: Ambulatory Limitations: No Limitations - Related Data Home Medications Medication Instructions Recorded Confirmed Last Taken Valacyclovir HCl [Valtrex] 500 mg PO DAILY 02/14/18 02/14/18 02/13/18 11:00 Previous Rx's Medication Instructions Recorded Last Taken Type Amoxicillin [Trimox CAP] 500 mg PO Q8H #21 capsule 04/13/20 Unknown Rx Nystas/Diphen/Xyl Visc/Mylanta 15 ml MM Q6H PRN #120 ml 04/13/20 Unknown Rx [Magic Mouthwash] Allergies Allergy/AdvReac Type Severity Reaction Status Date / Time No Known Allergies Allergy Unverified 09/25/15 17:46 ED Review of Systems ROS: Stated complaint: POSS SWOLLEN THROAT Other details as noted in HPI Comment: All other systems reviewed and negative ED Past Medical Hx - Past Medical History Previous Medical History?: No Hx Hypertension: No Hx Diabetes: No Hx Deep Vein Thrombosis: No Hx Renal Disease: No Hx Sickle Cell Disease: No Hx Seizures: No Hx Asthma: No Hx HIV: No Additional medical history: ,herpes - Surgical History Past Surgical History?: No - Social History Smoking Status: Unknown if ever smoked - Medications Home Medications: Home Medications Medication Instructions Recorded Confirmed Last Taken Type Valacyclovir HCl [Valtrex] 500 mg PO DAILY 02/14/18 02/14/18 02/13/18 11:00 History Amoxicillin [Trimox CAP] 500 mg PO Q8H #21 capsule 04/13/20 Unknown Rx Nystas/Diphen/Xyl Visc/Mylanta 15 ml MM Q6H PRN #120 ml 04/13/20 Unknown Rx [Magic Mouthwash] ED Physical Exam - General Limitations: No Limitations General appearance: alert, in no apparent distress - Head Head exam: Present: atraumatic, normocephalic - Eye Eye exam: Present: normal appearance - ENT ENT exam: Present: mucous membranes moist - Expanded ENT Exam Expanded Mouth exam: Present: normal external inspection Throat exam: Positive: tonsillar erythema, tonsillomegaly. Negative: tonsillar exudate, R peritonsillar mass, L peritonsillar mass - Neck Neck exam: Present: normal inspection, full ROM, lymphadenopathy. Absent: t enderness - Respiratory Respiratory exam: Present: normal lung sounds bilaterally. Absent: respiratory distress - Cardiovascular Cardiovascular Exam: Present: regular rate, normal rhythm. Absent: systolic murmur, diastolic murmur, rubs, gallop - GI/Abdominal GI/Abdominal exam: Present: soft, normal bowel sounds - Extremities Exam Extremities exam: Present: normal inspection - Back Exam Back exam: Present: normal inspection - Neurological Exam Neurological exam: Present: alert, oriented X3 - Psychiatric Psychiatric exam: Present: normal affect, normal mood - Skin Skin exam: Present: warm, dry, intact, normal color. Absent: rash ED Course Vital Signs 04/13/20 07:04 Temperature 98.8 F Pulse Rate 83 Respiratory 20 Rate Blood Pressure 175/109 O2 Sat by Pulse 100 Oximetry ED Medical Decision Making - Medical Decision Making 24-year-old female presents with acute pharyngitis. ED course: Rapid strep tests ordered rapid strep test negative Patient received 1 dose Magic mouthwash and prednisone. Vital signs stable patient is in no acute or respiratory distress. Discussed findings with patient about the positive strep. Discussed with patient follow-up with primary care physician. Patient verbally states he understands and will comply to follow-up. Critical care attestation.: If time is entered above; I have spent that time in minutes in the direct care of this critically ill patient, excluding procedure time. ED Disposition Clinical Impression: Tonsillitis Disposition: DC- TO HOME OR SELFCARE Is pt being admited?: No Does the pt Need Aspirin: No Condition: Stable Instructions: Tonsillitis (ED), Pharyngitis (ED) Additional Instructions: Make sure to follow up with the primary care physician as discussed. Take all your medications as you've been prescribed. If you have any worsening symptoms or develop new symptoms please return to ED immediately. Referrals: PRIMARY CARE, [Primary Care Provider] - 3-5 Days [facility] [Outside] - 3-5 Days [facility] [Outside] - 3-5 Days Forms: Work/School Release Form(ED) Time of Disposition: 09:20
[2020-04-13] MEDS ORDERED: MAGIC MOUTHWASH 30ML PO ONE (08:30)
== END 2020-04-13 09:34 | disposition home or self-care (01) ==
LOC: ED 06:26
DX: J03.90 Acute tonsillitis, unspecified (principal); Z79.899 Other long term (current) drug therapy
CPT/HCPCS: 87116; 87430; 96372; 99283; J1100